=== PATIENT | female | born 1975 | race Hispanic/Latino ===

== ENCOUNTER → 2020-09-28 | Outpatient (CLI) | payer OTHER | END | disposition home or self-care (01) | LOC: RAH 10:57 | PROVIDERS: ATTEND Family Medicine | DX: M79.89 Other specified soft tissue disorders (principal); I70.212 Atherosclerosis of native arteries of extremities with intermittent claudication, left leg | CPT/HCPCS: 93971 ==

== ENCOUNTER 2020-10-11 22:22 | Emergency (ER) | payer OTHER ==
[2020-10-11 23:22] LABS: BASOPHILS % (AUTO) 0.4 % (0.0-5.0); EOSINOPHILS % (AUTO) 1.8 % (0.0-8.0); LYMPHOCYTES % (AUTO) 35.1 % (21.0-51.0); MEAN CORPUSCULAR HEMOGLOBIN 24.2 pg (27.0-33.0); MEAN CORPUSCULAR VOLUME 80.6 fL (79-99); MONOCYTES % (AUTO) 8.4 % (3.0-13.0); PLATELET COUNT (AUTO) 394 K/uL (130-400); RED BLOOD CELL COUNT(AUTO) 3.97 MIL/uL (4.00-5.50); RED CELL DISTRIBUTION WIDTH 16.7 % (11.0-15.5); WHITE BLOOD COUNT (AUTO) 9.1 K/uL (4.8-10.8)
[2020-10-11 23:33] LABS: CREATININE 0.6 mg/dL (0.5-1.5); POTASSIUM 3.4 mmol/L (3.5-5.1)
[2020-10-11 23:37] LABS: ALBUMIN 3.3 g/dL (3.5-5.0); BILIRUBIN,TOTAL 0.2 mg/dL (0.2-1.0); TOTAL PROTEIN, SERUM 7.3 g/dL (6.0-8.3)
[2020-10-12] MEDS ORDERED: ORPHENADRINE CITRATE 30 MG/ML ML ONE (01:44)
[2020-10-12] MEDS ORDERED: KETOROLAC TROMETHAMINE 30MG/ML ONE (01:45)
== END 2020-10-12 02:06 | disposition home or self-care (01) ==
LOC: EDH 22:22
DX: S86.912A Strain of unspecified muscle(s) and tendon(s) at lower leg level, left leg, initial encounter (principal); I10 Essential (primary) hypertension; X58.XXXA Exposure to other specified factors, initial encounter; Y93.89 Activity, other specified; Y92.89 Other specified places as the place of occurrence of the external cause; Y99.8 Other external cause status
CPT/HCPCS: 36415; 71045; 80053; 84484; 85025; 93005; 93971; 96374; 96375; 99285; J1885; J2360

== ENCOUNTER 2021-01-14 12:17 | Emergency (ER) | payer OTHER ==
[~2021-01-14] VITALS: Ht 149.9 cm; Wt 90.7 kg
[2021-01-14 12:27] VITALS: BP 114/61
[2021-01-14] MEDS ORDERED: SOLU-MEDROL 125MG VIAL IM ONE (12:45)
[2021-01-14 13:15] LABS: BASOPHILS % (AUTO) 0.3 % (0.0-5.0); EOSINOPHILS % (AUTO) 2.1 % (0.0-8.0); HEMATOCRIT 33.6 % (36-48); LYMPHOCYTES % (AUTO) 30.1 % (21.0-51.0); MEAN CORPUSCULAR HEMOGLOBIN 25.2 pg (27.0-33.0); MEAN CORPUSCULAR VOLUME 81.6 fL (79-99); MONOCYTES % (AUTO) 5.9 % (3.0-13.0); NEUTROPHILS % (AUTO) 61.3 % (40.0-77.0); PLATELET COUNT (AUTO) 443 K/uL (130-400); RED BLOOD CELL COUNT(AUTO) 4.12 MIL/uL (4.00-5.50); RED CELL DISTRIBUTION WIDTH 14.9 % (11.0-15.5); WHITE BLOOD COUNT (AUTO) 10.8 K/uL (4.8-10.8)
[2021-01-14 13:58] LABS: CREATININE 0.6 mg/dL (0.5-1.5); POTASSIUM 3.9 mmol/L (3.5-5.1)
[2021-01-14 14:03] LABS: ALBUMIN 3.4 g/dL (3.5-5.0); BILIRUBIN,TOTAL 0.2 mg/dL (0.2-1.0); TOTAL PROTEIN, SERUM 7.9 g/dL (6.0-8.3)
[2021-01-14] MEDS ORDERED: METH4TAB3 PO (14:31)
== END 2021-01-14 15:42 | disposition home or self-care (01) ==
LOC: EDH 12:17
DX: M79.18 Myalgia, other site (principal); M54.5 Low back pain; E66.01 Morbid (severe) obesity due to excess calories; M19.90 Unspecified osteoarthritis, unspecified site; I10 Essential (primary) hypertension; E78.5 Hyperlipidemia, unspecified; Z68.41 Body mass index [BMI] 40.0-44.9, adult
CPT/HCPCS: 36415; 80053; 84484; 85025; 96372; 99283; J2930

== ENCOUNTER 2022-08-19 01:43 | Emergency (ER) | payer OTHER ==
[~2022-08-19] VITALS: Ht 152.4 cm; Wt 102.5 kg
[~2022-08-19 01:43] MED LIST: METH4TAB3 PO
[2022-08-19] MEDS ORDERED: IPRATROPIUM/ALBUTEROL SULFATE 3 ML SOLUTION IH ONE (02:00)
[2022-08-19] MEDS ORDERED: ALBUTEROL 0.083% 2.5 MG/3 ML INH IH ONE (02:30)
[2022-08-19] MEDS ORDERED: IPRATROPIUM 0.5 MG/2.5 ML INH IH ONE (02:30)
[2022-08-19] MEDS ORDERED: PRED20TA3 PO (02:46)
[2022-08-19] MEDS ORDERED: ALBU90AE2 IH (02:46)
[2022-08-19] MEDS ORDERED: AZIT500T2 PO (02:46)
[2022-08-19] MEDS ORDERED: OSEL75 PO (03:20)
[2022-08-19 03:30] VITALS: BP 155/71
== END 2022-08-19 03:31 | disposition home or self-care (01) ==
LOC: EDH 01:43
DX: J20.9 Acute bronchitis, unspecified (principal); J10.1 Influenza due to other identified influenza virus with other respiratory manifestations; M19.90 Unspecified osteoarthritis, unspecified site; I10 Essential (primary) hypertension; Z20.822 Contact with and (suspected) exposure to COVID-19; Z98.890 Other specified postprocedural states; Z79.899 Other long term (current) drug therapy
CPT/HCPCS: 99283; 87635; 87880; 87804 ×2; 94640; C9803